=== PATIENT | female | born 1945 | race American Indian/Alaskan Native ===

== ENCOUNTER 2019-06-20 08:01 | Day surgery (SDC) | payer MEDICARE ==
[~2019-06-20] VITALS: Ht 170.2 cm; Wt 99.0 kg
[2019-06-20] MEDS ORDERED: MIDAZolam 5mg/5ml vial ONE (08:13)
[2019-06-20] MEDS ORDERED: fentaNYL/PF 50MCG/1 ML 2ML syringe ONE (08:13)
[2019-06-20] MEDS ORDERED: LIDOcaine Viscous 15ml cup ONE (08:13)
[2019-06-20 08:15] VITALS: BP 138/63
[2019-06-20] MEDS ORDERED: MELA3TAB64 PO (08:36)
[2019-06-20] MEDS ORDERED: ONDA4TAB12 PO (08:37)
[2019-06-20] MEDS ORDERED: TRAM50TA2 PO (08:38)
[2019-06-20] MEDS ORDERED: DOCU-148 (08:38)
[2019-06-20] MEDS ORDERED: ALBU8.5H8 IH (08:39)
[2019-06-20] MEDS ORDERED: ARFO15VI (08:40)
[2019-06-20] MEDS ORDERED: CALC-1230 (08:41)
[2019-06-20] MEDS ORDERED: CHOL100046 PO (08:42)
[2019-06-20] MEDS ORDERED: BACL10TA PO (08:42)
[2019-06-20] MEDS ORDERED: DULO30CA52 PO (08:43)
[2019-06-20 09:45] VITALS: BP 132/62
[2019-06-20 09:55] VITALS: BP 123/59
[2019-06-20 10:05] VITALS: BP 118/64
[2019-06-20 10:15] VITALS: BP 113/60
== END 2019-06-20 10:20 | disposition home or self-care (01) ==
LOC: GI LAB 08:01
PROVIDERS: ATTEND Internal Medicine Gastroenterology
DX: R10.10 Upper abdominal pain, unspecified (principal); K29.50 Unspecified chronic gastritis without bleeding; K44.9 Diaphragmatic hernia without obstruction or gangrene; K25.9 Gastric ulcer, unspecified as acute or chronic, without hemorrhage or perforation; K29.80 Duodenitis without bleeding; K31.89 Other diseases of stomach and duodenum; Z79.899 Other long term (current) drug therapy
CPT/HCPCS: 43239; G0500; J2250; J3010; J7040; 88305; 88342; 99152; A4620